=== PATIENT | female | born 1970 | race Caucasian/White ===

== ENCOUNTER 2021-03-12 12:40 | Emergency (ER) | payer OTHER, SELFPAY ==
[2021-03-12 12:56] VITALS: BP 118/79; PULSE 86; RESP 17; TEMP 38.6; O2SAT 100
--- NOTE | 2021-03-12 13:11 | ED.URI ---
HPI - URI/Sore Throat General Chief Complaint: Upper Respiratory Infection Stated Complaint: Sore Throat Time Seen by Provider: 03/12/21 13:00 Source: patient Mode of arrival: ambulatory Limitations: no limitations History of Present Illness HPI Narrative: Lexie Hood is a 50 yo female with PMH of depression, HTN, who comes to [facility] with complaints of upper respiratory symptoms that started few days ago she had a Covid test yesterday for PCR but has not been resulted yet, she is complaining of a sore throat has fever of 101.5, and left ear pain Related Data Home Medications Medication Instructions Recorded Confirmed ergocalciferol (vitamin D2) 1,250 mcg PO DAILY 03/12/21 03/12/21 escitalopram oxalate 10 mg PO DAILY 03/12/21 03/12/21 medroxyprogesterone 150 mg IM [id number] 03/12/21 03/12/21 olmesartan 40 mg PO DAILY 03/12/21 03/12/21 Allergies Allergy/AdvReac Type Severity Reaction Status Date / Time latex Allergy Severe TROAT Verified 03/12/21 12:44 SWELLS,ITCHING pineapple Allergy Severe THROAT Verified 03/12/21 12:44 SWELLS,ITCHING Review of Systems Review of Systems: CONSTITUTIONAL: Denies fever, chills, sweats. EYES: Denies visual changes, redness, discharge. ENT: Denies rhinorrhea, has congestion, has sore throat, left otalgia. CARDIOVASCULAR: Denies chest pain, palpitations, edema. RESPIRATORY: Denies dyspnea, wheezing, cough GASTROINTESTINAL: Denies abdominal pain, nausea, vomiting, diarrhea. GENITOURINARY: Denies dysuria, hematuria, abnormal discharge SKIN: Denies rash or itching. NEUROLOGIC: Denies numbness, or focal weakness. PSYCHIATRIC: Denies anxiety or depression. [facility] Past Medical History Medical History Depression HTN (hypertension) Social History Social History (Updated 03/12/21 @ 13:15 by Michelle Smith CNP) Smoking status: Former smoker Tobacco type: cigarettes Alcohol intake: current Comments At time of signature, I agree with nursing past medical, surgical, social and family history. There is no relevant family history pertinent to the presenting complaint. Exam Narrative: GENERAL: This is a well-nourished, well-developed patient, in mild distress. HEAD: normocephalic, atraumatic. EYES: Sclera clear/white. Vision is grossly intact. EARS: External ears normal, auditory canal r clear with left erythema and without drainage, TMs normal without perforation. Hearing grossly intact. NOSE: External nose normal without nasal discharge, nares without redness, no rhinorrhea. THROAT: Mucous membranes moist, posterior pharynx erythema NECK: Neck supple, non-tender CARDIOVASCULAR: Regular rate and rhythm without murmurs, gallops, or rubs. RESPIRATORY: Clear to auscultation. Breath sounds equal bilaterally. No wheezes, rales, or rhonchi. GASTROINTESTINAL: Abdomen soft, non-tender, SKIN: warm, intact with no suspicious lesions or rash, good texture and turgor. NEURO: awake, alert, and oriented to person, place and time. There were no obvious focal neurologic abnormalities. Steady gait EXTREMITIES: Normal range of motion. BACK: Nontender without deformity Course Course Emergency Course: Patient has fever and sore throat for the last 2 days fever was 101.5 here. She was tested for Covid yesterday but has not received results Strep test done- positive result Patient started on amoxicillin and viscous lidocaine; rotate ibuprofen and Tylenol for fever Vital Signs Vital signs: Vital Signs Temperature 101.5 F H 03/12/21 12:56 Pulse Rate 86 03/12/21 12:56 Respiratory Rate 17 03/12/21 12:56 Blood Pressure 118/79 03/12/21 12:56 Pulse Oximetry 100 03/12/21 12:56 Temperature 101.5 F H 03/12/21 12:56 Pulse Rate 86 03/12/21 12:56 Respiratory Rate 17 03/12/21 12:56 Blood Pressure 118/79 03/12/21 12:56 Pulse Oximetry 100 03/12/21 12:56 MDM - URI/Sore Throat Differential Diagnosi
== END 2021-03-12 13:48 | disposition home or self-care (01) ==
PROVIDERS: Emergency Provider Nurse Practitioner; PCP Family Medicine
DX: J02.0 Streptococcal pharyngitis (principal); I10 Essential (primary) hypertension; Z87.891 Personal history of nicotine dependence
CPT/HCPCS: 87880; 99213; G0463